=== PATIENT | male | born 2000 | race African-American/Black ===

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

== ENCOUNTER 2020-12-27 10:22 | Emergency (ER) | payer SELFPAY ==
[~2020-12-27] VITALS: Ht 172.7 cm; Wt 68.2 kg
[2020-12-27 10:38] VITALS: Ht 172.7 cm; Wt 68.2 kg
[2020-12-27] MEDS ORDERED: MEDROL DOSE PACK4 MG PO (11:58)
[2020-12-27] MEDS ORDERED: FLUTICASONE PRO16 GM NASAL (11:58)
[2020-12-27] MEDS ORDERED: ROBITUSSIN DM 110 ML PO (11:58)
[2020-12-27 12:01] VITALS: BP 127/75
== END 2020-12-27 12:01 | disposition home or self-care (01) ==
LOC: D.ER 10:22
DX: R05 Cough (principal); J02.9 Acute pharyngitis, unspecified; Z72.0 Tobacco use